=== PATIENT | male | born 1985 | race Caucasian/White ===

== ENCOUNTER 2021-02-01 02:01 | Emergency (ER) | payer SELFPAY ==
[2021-02-01] MEDS ORDERED: Ketorolac Tromethamine 30 MG/ML VIAL ONE (03:02)
[2021-02-01 03:52] LABS: Bacteria/HPF None Seen HPF (None Seen); Bilirubin Negative (Negative); Blood, Urine 1+ (Negative); Clarity Clear (Clear); Glucose, Urine (Dipstick) Normal (Negative); Ketone, Urine Negative (Negative); Leukocyte Negative Leu/uL (Negative); Nitrite Negative (Negative); Protein, Urine (Dipstick) Negative (Neg-Trace); RBC/HPF 0-3 HPF (0-3); Specific Gravity, Urine 1.004 (1.002-1.036); Squamous Epithelial None Seen HPF (0-3); Urobilinogen Normal mg/dL (Less than 2); WBC/HPF 0-3 HPF (0-3)
[2021-02-01] MEDS ORDERED: cefTRIAXone\\ROCEPHIN 500 MG VIAL ONE (04:05)
[2021-02-01] MEDS ORDERED: Lidocaine 2% PF 100 mg/5 ml Syringe ONE (04:15)
[2021-02-01] MEDS ORDERED: Lidocaine 1% PF 5 ML VIAL ONE (04:15)
== END 2021-02-01 04:32 ==
LOC: ERS 02:01
DX: N45.1 Epididymitis (principal)
CPT/HCPCS: 76870; 81003; 81015; 93976; 96372; J0696; J1885; J2001